=== PATIENT | female | born 1930 | race Caucasian/White ===

== ENCOUNTER 2019-02-04 07:21 | Emergency (ER) | payer OTHER ==
[~2019-02-04] VITALS: Ht 167.6 cm; Wt 55.0 kg
[2019-02-04 11:32] VITALS: BP 157/77
== END 2019-02-04 10:45 | disposition home or self-care (01) ==
LOC: ER 07:21
DX: L97.118 Non-pressure chronic ulcer of right thigh with other specified severity (principal); L98.491 Non-pressure chronic ulcer of skin of other sites limited to breakdown of skin; I11.0 Hypertensive heart disease with heart failure; I50.9 Heart failure, unspecified; I48.91 Unspecified atrial fibrillation
CPT/HCPCS: 99283

== ENCOUNTER 2019-05-14 23:53 | Emergency (ER) | payer OTHER, MEDICAID ==
[~2019-05-14] VITALS: Ht 160 cm; Wt 69.0 kg
[2019-05-15] MEDS ORDERED: SODIUM CHLORIDE 0.9% 1,000 ML IV ONE (00:09)
[2019-05-15] MEDS ORDERED: LOPERAMIDE 1 MG/7.5 ML UDC PO ONE (00:15)
[2019-05-15 00:40] LABS: BASOPHILS % 0.4 % (0.0-2.0); EOSINOPHILS % 0.5 % (0.0-5.0); HEMATOCRIT. 38.6 % (36.0-48.0); HEMOGLOBIN. 12.5 g/dL (12.0-16.0); LYMPHOCYTES % 8.2 % (20.0-50.0); MEAN CORPUSCULAR HEMOGLOBIN 29.6 pg (28.0-32.0); MEAN CORPUSCULAR VOLUME 91.2 fL (81.0-99.0); MEAN PLATELET VOLUME 8.7 fl (7.4-10.4); MONOCYTES % 9.8 % (2.0-8.0); NEUTROPHILS % 81.1 % (40.0-76.0); PLATELET 264 x1000/uL (130-400); RED BLOOD CELL COUNT 4.23 mill/uL (4.2-5.4); RED CELL DISTRIBUTION WIDTH 14.9 % (11.6-14.6)
[2019-05-15 00:44] LABS: CHLORIDE 105 mEq/L (98-107)
[2019-05-15 02:00] VITALS: BP 135/89
== END 2019-05-15 04:05 | disposition home or self-care (01) ==
LOC: ER 23:53
DX: R19.7 Diarrhea, unspecified (principal); I11.0 Hypertensive heart disease with heart failure; I50.9 Heart failure, unspecified; I48.91 Unspecified atrial fibrillation; R79.89 Other specified abnormal findings of blood chemistry
CPT/HCPCS: 36415; 71045; 80053; 83690; 83880; 84484; 85025; 93005; 99284; J7030